=== PATIENT | female | born 1970 ===

== ENCOUNTER 2018-03-26 14:25 | Emergency (ER) | payer OTHER ==
--- NOTE | 2018-03-26 15:04 | ED PDOC ---
HPI: Abdomen Time Seen by Provider: 03/26/18 15:04 Chief Complaint (Nursing): Abdominal Pain Chief Complaint (Provider): abdominal pain History Per: Patient, Family ( is at bedside translating for patient in [place] Islander) Additional Complaint(s): 47-year-old female presents with abdominal pain, nausea, vomiting and diarrhea that started as of this morning. Patient is not sure if her dinner cause stomach upset from last night. Patient denies fever or chills. She cannot keep down any liquids or solids since vomiting started this morning. She states abdominal pain as a 6 out of 10. PMD: none Past Medical History Reviewed: Historical Data, Nursing Documentation, Vital Signs Vital Signs: Last Vital Signs Temp 99.7 F H 03/26/18 15:00 Pulse 93 H 03/26/18 15:00 Resp 16 03/26/18 15:00 BP 131/92 H 03/26/18 15:00 Pulse Ox 100 03/26/18 16:52 - Medical History PMH: Anemia - Surgical History Surgical History: Appendectomy - Family History Family History: States: No Known Family Hx - Living Arrangements Living Arrangements: With Family - Social History Current smoker - smoking cessation education provided: No Alcohol: None Drugs: Denies - Home Medications Home Medications: Ambulatory Orders Medication Instructions Recorded Ascorbic Acid [Vitamin C 250 mg 250 mg PO BID #0 tab 04/07/15 Tab] Ferrous Sulfate [Feosol] 324 mg PO BID #0 ect 04/07/15 Folic Acid 1 mg PO DAILY #0 tab 04/07/15 Dicyclomine [Bentyl] 10 mg PO QID PRN #20 cap 03/26/18 Ondansetron [Zofran Odt] 4 mg PO ASDIR PRN #15 odt 03/26/18 - Allergies Allergies/Adverse Reactions: Allergies Allergy/AdvReac Type Severity Reaction Status Date / Time No Known Allergies Allergy Verified 03/26/18 14:59 Review of Systems ROS Statement: Except As Marked, All Systems Reviewed And Found Negative Constitutional: Negative for: Fever, Chills Cardiovascular: Negative for: Chest Pain Gastrointestinal: Positive for: Nausea, Vomiting, Abdominal Pain, Diarrhea. Negative for: Constipation, Melena, Hematochezia, Hematemesis, Rectal Pain Genitourinary Female: Negative for: Dysuria Physical Exam - Reviewed Nursing Documentation Reviewed: Yes Vital Signs Reviewed: Yes - Physical Exam Appears: Positive for: Well, Non-toxic, No Acute Distress Skin: Negative for: Rash Eye Exam: Positive for: Normal appearance Cardiovascular/Chest: Positive for: Regular Rate, Rhythm Respiratory: Positive for: Normal Breath Sounds Gastrointestinal/Abdominal: Positive for: Soft, Tenderness (minimal tenderness in all 4 quadrants, no rebound or guarding). Negative for: Distended, Guarding , Rebound Extremity: Positive for: Normal ROM Neurologic/Psych: Positive for: Alert, Oriented - Laboratory Results Result Diagrams: 03/26/18 15:59 03/26/18 15:59 Urine POC: Negative Urine dip results: Positive for: Ketones (trace). Negative for: Leukocyte Esterase, Blood, Nitrate, Glucose, Bilirubin, Protein - ECG O2 Sat by Pulse Oximetry: 100 Pulse Ox Interpretation: Normal - Other Rad Abd US X-Ray: Read By Radiologist X-Ray Interpretation: no acute finding Medical Decision Making Medical Decision Makin47 year old with abdominal pain, vomiting and diarrhea Plan: Urine test Urine dip CBC CMP Lipase IVF IV reglan IV toradol Abd US Patient is aware of diagnostic testing results, all questions answered. Abdominal ultrasound is unremarkable. Hemoglobin is 8.8, patient has history of anemia but denies any acute symptoms at present. Patient was able to tolerate water without further emesis. Will DC with Zofran and Bentyl. Dietary instructions provided. Repeat VS prior to d/c are normal: Temp: 98.5 HR: 88 BP: 136/74 RR: 16 O2 sat: 99% Disposition - Clinical Impression Clinical Impression: Gastroenteritis - Patient ED Disposition Is Patient to be Admitted: No Counseled Patient/Family Regarding: Studies Performed, Diagnosis, Need For Followup, Rx Given - Disposition Referrals: [facility] [Outside] Disposition: Routine/Home Disposition Time: 16:47 Condition: IMPROVED Additional Instructions: Take rx meds as directed. Follow BRAT diet - bananas, rice, apples toast Drink plenty of clear liquids Follow up with clinic in 2-3 days. Prescriptions: Dicyclomine [Bentyl] 10 mg PO QID PRN #20 cap PRN Reason: Gi Distress Ondansetron [Zofran Odt] 4 mg PO ASDIR PRN #15 odt PRN Reason: Nausea/Vomiting Instructions: Gastroenteritis (ED) Forms: [place]! ([place]) Print Language: WELSH Results - Lab Results Lab Results: 03/26/18 03/26/18 15:59 15:59 WBC 10.4 RBC 4.29 Hgb 8.8 L Hct 28.1 L MCV 65.5 L D MCH 20.4 L MCHC 31.2 L RDW 16.6 H Plt Count 222 MPV 8.5 Neut % (Auto) 93.3 H Lymph % (Auto) 2.0 L [place] % (Auto) 4.4 Eos % (Auto) 0.2 Baso % (Auto) 0.1 Neut # (Auto) 9.7 H Lymph # (Auto) 0.2 L [place] # (Auto) 0.5 Eos # (Auto) 0.0 Baso # (Auto) 0.0 Neutrophils % (Manual) Pending Lymphocytes % (Manual) Pending Monocytes % (Manual) Pending Platelet Estimate Pending Sodium 141 Potassium 3.7 Chloride 103 Carbon Dioxide 21 L Anion Gap 21 H BUN 15 Creatinine 0.7 Est GFR ( Amer) > 60 Est GFR (Non-Af Amer) > 60 Random Glucose 119 H Calcium 9.2 Total Bilirubin 0.3 AST 50 H ALT 37 Alkaline Phosphatase 82 Total Protein 8.9 H Albumin 4.6 Globulin 4.3 H Albumin/Globulin Ratio 1.1 Lipase 83
[2018-03-26] MEDS ORDERED: Sodium Chloride 0.9% 1,000 ML IV STA (15:21)
[2018-03-26 16:13] LABS: ALB/GLOB RATIO 1.1 (1.0-2.1); ALBUMIN 4.6 g/dL (3.5-5.0); ALT/SGPT 37 U/L (9-52); AST/SGOT 50 U/L (14-36); BLOOD UREA NITROGEN 15 mg/dl (7-17); CALCIUM 9.2 mg/dL (8.4-10.2); GFR AFRICAN-AMERICAN > 60; GFR NON-AFRICAN AMERICAN > 60; LIPASE 83 U/L (23-300)
--- NOTE | 2018-03-26 16:29 | US ---
HISTORY: abd pain, vomiting, diarrhea COMPARISON: None. TECHNIQUE: Sonographic evaluation of the right upper quadrant of the abdomen. FINDINGS: LIVER: Measures 14.5 cm in length. Normal echogenicity of the liver parenchyma. No mass. No intrahepatic bile duct dilatation. GALLBLADDER: Unremarkable. No gallstones. COMMON BILE DUCT: Measures 2 mm. No stones. No dilatation. PANCREAS: Unremarkable as visualized. No mass. No ductal dilatation. RIGHT KIDNEY: Measures 11.0 x 4.3 x 3.6 cm in length. Normal echogenicity. No calculus, mass, or hydronephrosis. AORTA: No aneurysmal dilatation. IVC: Unremarkable. OTHER FINDINGS: None . IMPRESSION: Unremarkable exam
[2018-03-26 16:33] LABS: BASO % 0.1 % (0.0-2.0); EOS % 0.2 % (0.0-4.0); HEMOGLOBIN 8.8 g/dL (12.0-16.0); LYMPH # 0.2 K/uL (1.0-4.3); MEAN CELL VOLUME 65.5 fl (81.0-99.0); MEAN CORPUSCULAR HEMOGLOBIN 20.4 pg (27.0-31.0); MEAN CORPUSCULAR HGB CONC 31.2 g/dL (33.0-37.0); MEAN PLATELET VOLUME 8.5 fl (7.2-11.7); MONO # 0.5 K/uL (0.0-0.8); MONO % 4.4 % (0.0-10.0); NEUT # 9.7 K/uL (1.8-7.0); NEUT % 93.3 % (50.0-75.0); PLATELET COUNT 222 K/uL (130-400); RBC 4.29 Mil/uL (3.80-5.20); RED CELL DISTRIBUTION WIDTH 16.6 % (11.5-14.5); WHITE BLOOD COUNT 10.4 K/uL (4.8-10.8)
[2018-03-26 17:07] VITALS: BP 136/74; PULSE 88; TEMP 98.5
[2018-03-26 17:09] VITALS: O2SAT 100
[2018-03-26 17:12] VITALS: RESP 18
[2018-03-26 17:43] LABS: ANISOCYTOSIS SLIGHT; BANDS 1 % (0-2); LYMPHOCYTE 3 % (20-50); MONOCYTE 2 % (0-10); NEUTROPHIL 93 % (42-75); POIKILOCYTOSIS SLIGHT; REACTIVE LYMPHOCYTES 1 % (0-0); TOTAL CELLS COUNTED 100
[2018-03-26 17:44] LABS: HYPOCHROMIC SLIGHT
[2018-03-26 17:45] LABS: OVALOCYTES SLIGHT; STOMATOCYTES SLIGHT
[2018-03-26 17:46] LABS: PLATELET ESTIMATE NORMAL (NORMAL)
== END 2018-03-26 17:11 | disposition home or self-care (01) ==
LOC: H.ER 14:25
DX: K52.9 Noninfective gastroenteritis and colitis, unspecified (principal)
CPT/HCPCS: 76705; 80053; 81025; 83690; 85025; 99284; J1885; J2765; J7040